=== PATIENT | female | born 1980 | race Caucasian/White ===

== ENCOUNTER 2017-09-07 00:25 | Emergency (ER) | payer SELFPAY ==
[2017-09-07 02:51] VITALS: BP 148/88; PULSE 82; TEMP 98.1; BMI 42.9
--- NOTE | 2017-09-07 03:09 | PDOC ---
History of Present Illness - History of Present Illness Initial Comments: 09/07/17 03:27 The patient is a 37 year old female, with no significant past medical history, who presents to the emergency department for sore throat, bilateral ear pain, and nasal congestion for 1 week. The patient reportedly has been taking Advil with minimal relief. She denies sick contacts. She denies fever, chills, shortness of breath. She denies chest pain, dizziness, or lightheadedness. LMP: July Allergies: NKDA <Gege Lynne - Last Filed: 09/07/17 03:27> - General History Source: Patient <AaroncarmenGanesh - Last Filed: 09/07/17 04:19> - General Chief Complaint: Sore Throat Stated Complaint: SORE THROAT, EARACHE Time Seen by Provider: 09/07/17 03:04 Past History <Gege Lynne - Last Filed: 09/07/17 03:27> - Suicide/Smoking/Psychosocial Hx Smoking History: Never smoked Have you smoked in the past 12 months: No Information on smoking cessation initiated: No Hx Alcohol Use: No Drug/Substance Use Hx: No <Ganesh Lind - Last Filed: 09/07/17 04:19> - Past Medical History Allergies/Adverse Reactions: Allergies Allergy/AdvReac Type Severity Reaction Status Date / Time No Known Allergies Allergy Verified 09/07/17 02:39 Home Medications: Ambulatory Orders Guaifenesin AC [Robitussin AC -] 5 ml PO TID #90 liquid MDD 20 09/07/17 Ibuprofen 800 mg PO TID #30 tablet 09/07/17 Meclizine HCl 25 mg PO TID #30 tablet 09/07/17 Review of Systems - Review of Systems Able to Perform ROS?: Yes Comments:: 09/07/17 03:28 CONSTITUTIONAL: Absent: fever, chills, diaphoresis, generalized weakness, malaise, loss of appetite HEENT: (+) nasal congestion, throat pain, and bilateral ear pain, Absent: rhinorrhea, throat swelling, difficulty swallowing, mouth swelling, eye pain, visual Changes CARDIOVASCULAR: Absent: chest pain, syncope, palpitations, irregular heart rate, lightheadedness , peripheral edema RESPIRATORY: Absent: cough, shortness of breath, dyspnea with exertion, orthopnea, wheezing, stridor, hemoptysis GASTROINTESTINAL: Absent: abdominal pain, abdominal distension, nausea, vomiting, diarrhea, constipation, melena, hematochezia GENITOURINARY: Absent: dysuria, frequency, urgency, hesitancy, hematuria, flank pain, genital pain MUSCULOSKELETAL: Absent: myalgia, arthralgia, joint swelling SKIN: Absent: rash, itching, pallor HEMATOLOGIC/IMMUNOLOGIC: Absent: easy bleeding, easy bruising, lymphadenopathy, frequent infections ENDOCRINE: Absent: unexplained weight gain, unexplained weight loss, heat intolerance, cold intolerance NEUROLOGIC: Absent: headache, focal weakness or paresthesias, dizziness, unsteady gait, seizure, mental status changes, bladder or bowel incontinence PSYCHIATRIC: Absent: anxiety, depression, suicidal or homicidal ideation, hallucinations. <Gege Lynne - Last Filed: 09/07/17 03:27> *Physical Exam - Vital Signs Last Vital Signs Temp Pulse Resp BP Pulse Ox 98.1 F 82 14 148/88 98 09/07/17 02:39 09/07/17 02:39 09/07/17 02:39 09/07/17 02:39 09/07/17 02:39 - Physical Exam Comments: 09/07/17 03:29 GENERAL: Well developed, well nourished. Awake and alert. No acute distress. HEENT: (+) nasal congestion. Normocephalic, atraumatic. PERRLA, EOMI. No conjunctival pallor. Sclera are non-icteric. Moist mucous membranes. Oropharynx is clear. NECK: Supple. Full ROM. No JVD. Carotid pulses 2+ and symmetric, without bruits. No thyromegaly. No lymphadenopathy. CARDIOVASCULAR: Regular rate and rhythm. No murmurs, rubs, or gallops. Distal pulses are 2+ and symmetric. PULMONARY: No evidence of respiratory distress. Lungs clear to auscultation bilaterally. No wheezing, rales or rhonchi. ABDOMINAL: Soft. Non-tender. Non-distended. No rebound or guarding. No organomegaly. Normoactive bowel sounds. MUSCULOSKELETAL Normal range of motion at all joints. No bony deformities or tenderness. No CVA tenderness. EXTREMITIES: No cyanosis. No clubbing. No edema. No calf tenderness. SKIN: Warm and dry. Normal capillary refill. No rashes. No jaundice. NEUROLOGICAL: Alert, awake, appropriate. Cranial nerves 2-12 intact. Normoreflexic in the upper and lower extremities. Normal speech. Toes are down-going bilaterally. Gait is normal without ataxia. PSYCHIATRIC: Cooperative. Good eye contact. Appropriate mood and affect. <Gege Lynne - Last Filed: 09/07/17 03:27> - Vital Signs Last Vital Signs Temp Pulse Resp BP Pulse Ox 98.1 F 82 14 148/88 98 09/07/17 02:39 09/07/17 02:39 09/07/17 02:39 09/07/17 02:39 09/07/17 02:39 <Ganesh Lind - Last Filed: 09/07/17 04:19> Medical Decision Making - Medical Decision Making 09/07/17 04:19 Dr. Lind: The scribe's documentation has been prepared under my direction and personally reviewed by me in its entirery. I confirm that the note above accurately reflects all work, treatment, procedures, and medical decision making performed by me. <Ganesh Lind - Last Filed: 09/07/17 04:19> *DC/Admit/Observation/Transfer - Attestations Scribe Attestion: 09/07/17 03:29 Documentation prepared by Gege Lynne, acting as medical observer for Ganesh Lind DO <Gege Lynne - Last Filed: 09/07/17 03:27> - Discharge Dispostion Admit: No <Ganesh Lind - Last Filed: 09/07/17 04:19> Diagnosis at time of Disposition: Cough - Discharge Dispostion Disposition: HOME Condition at time of disposition: Stable - Prescriptions Prescriptions: Guaifenesin AC [Robitussin AC -] 5 ml PO TID #90 liquid MDD 20 Ibuprofen 800 mg PO TID #30 tablet Meclizine HCl 25 mg PO TID #30 tablet - Patient Instructions Printed Discharge Instructions: DI for Cough -- Adult Additional Instructions: Take medication as directed. Follow up with your doctor as soon as possible. Drink plenty of fluids and have a lot of bed rest Print Language: YORUBA
[2017-09-07] MEDS ORDERED: IBUPROFEN 400 MG TABLET (FP) PO ONE ×2 (03:10→03:26)
[2017-09-07] MEDS ORDERED: MECLIZINE HCL 25 MG TABLET (FP) PO STA (03:10)
[2017-09-07] MEDS ORDERED: MECLIZINE HCL 25 MG TABLET (FP) ONE (03:26)
== END 2017-09-07 04:30 | disposition home or self-care (01) ==
LOC: JER 00:25
DX: R05 Cough (principal)
CPT/HCPCS: 99281-25